=== PATIENT | male | born 1985 | race African-American/Black ===

== ENCOUNTER 2020-07-30 17:26 | Emergency (ER) | payer OTHER, SELFPAY ==
[2020-07-30] MEDS ORDERED: HYDROcodone/Acetaminophen 5/325 mg Tablet ONE (18:31)
[2020-07-30] MEDS ORDERED: Bacitracin 1 PK ONE (18:32)
== END 2020-07-30 18:52 | disposition home or self-care (01) ==
LOC: ERS 17:26
DX: S40.811A Abrasion of right upper arm, initial encounter (principal); V89.2XXA Person injured in unspecified motor-vehicle accident, traffic, initial encounter
CPT/HCPCS: 99283